=== PATIENT | male | born 1960 | race Caucasian/White ===

== ENCOUNTER 2022-07-14 00:39 | Day surgery (SDC) | payer BC, SELFPAY ==
[2022-07-02 11:00] VITALS: BMI 31.0
[2022-07-14 06:27] VITALS: BP 140/77; PULSE 69; RESP 18; TEMP 36.4; O2SAT 97
[2022-07-14] MEDS: LACTATED RINGERS 1,000 ML 150 ML IV CONT (06:33)
--- NOTE | 2022-07-14 07:26 | P.PNAN_ITS ---
Anes - Initial Pre Proc Eval Procedure: Operation Date: 07/14/22 07:30 Proposed Procedures p Esophagogastroduodenoscopy & Screening Colonoscopy - Daron Freeman MD Date/Time: 07/14/22 07:26 Surgeon: Daron Sewell MD Pre Op Diagnosis: family hx colon ca, dysphagia Patient Data Age: 62 Gender: M Height: 1.73 m Weight: 95.6 kg Last Vital Signs Temp 97.5 F L 07/14/22 06:27 Pulse 69 07/14/22 06:27 Resp 18 07/14/22 06:27 BP 140/77 07/14/22 06:27 Pulse Ox 97 07/14/22 06:27 O2 Del Method Room Air 07/14/22 06:27 Allergies Allergy/AdvReac Type Severity Reaction Status Date / Time Sulfa (Sulfonamide Allergy Unknown Unknown Verified 07/14/22 06:23 Antibiotics) Home Medications Medication Instructions Recorded Confirmed Type famotidine 20 mg tablet 20 mg PO BID #180 tabs 11/26/19 07/14/22 Rx hydroxyzine HCl 25 mg tablet See Rx Instructions PO QHS PRN 04/15/22 07/14/22 Rx insomnia #30 tabs bupropion HCl 150 mg 24 hr tablet, 150 mg PO QAM #30 tabs 04/26/22 07/14/22 Rx extended release (Wellbutrin XL) Patient hx anesthesia problems: none Family hx anesthesia problems: none Results Review: All pre-operative results and documents have been reviewed as part of the pre- operative evaluation. [facility] Past Medical History Medical History Anxiety GERD (gastroesophageal reflux disease) Family History Family History Other Carcinoma of colon Social History Social History Smoking status: Never smoker Second hand tobacco smoke exposure: No Alcohol intake: never Substance use: never Substance use type: does not use Lack of Transportation: No Lack of Food: Never True Current Housing: I Have Housing Concerned About Future Housing: No Difficulty Paying Gas/Electric Bills: No Difficulty Paying for Meds: No Currently Unemployed: No Education: High School Diploma/GED Difficulty w/ Childcare or Family Care: No Living arrangements: with family Spiritual care concerns: No Anes - Eval Final PreProcedure Day of Procedure 07/14/22 07:26 Patient weight: obese Heart: regular rate and rhythm Lungs: clear to auscultation Airway: Mallampati scale class II Neurological: alert and oriented Last oral intake: >/= 8 hours ASA classification: II Emergent: no Anesthetic plan: proceed Anesthesia type and monitoring: general GIVS and standard monitoring Results Review: All pre-operative results and documents have been reviewed as part of the pre- operative evaluation. Informed Consent: The patient's anesthetic plan and its attendant risks and benefits were discussed with the patient/family/POA. Questions were solicited and answers provided to the satisfaction of the patient/family/POA.
--- NOTE | 2022-07-14 07:31 | PM.HPGS ---
History of Present Illness History of Present Illness Consent: Risks, benefits, and alternatives have been discussed and questions answered. Patient agrees to proceed with procedure. Chief complaint: family hx colon ca, dysphagia Narrative: Tom Rose is a 62 year old male with dysphagia using famotidine, also history of family colon cancer in brother, last colonoscopy 5 years ago Review of Systems Constitutional: Constitutional: Denies headache(s) and Denies weakness Eyes: Eyes: Denies blurry vision ENT: Reports Normal hearing present, Denies headache(s) and Denies neck pain Cardiovascular: Cardiovascular: Denies chest pain and Denies dyspnea Respiratory: Respiratory: Denies dyspnea Gastrointestinal: Gastrointestinal: Reports no additional gastrointestinal complaints Genitourinary: Genitourinary: Denies dysuria Musculoskeletal: Musculoskeletal: Denies neck pain Integumentary/Breasts: Skin/Breast: Denies dry skin Neurologic: Reports Normal hearing present, Denies headache(s) and Denies weakness Psychiatric: Psychiatric: Denies anxiety Endocrine: Endocrine: Denies change in body appearance Hematologic/Lymphatic: Hematologic/Lymphatic: Denies easy bleeding Allergic/Immunologic: Allergic/Immunologic: Denies urticaria PMFSH Past Medical History Medical History Anxiety GERD (gastroesophageal reflux disease) Family History Family History Other Carcinoma of colon Social History Social History Smoking status: Never smoker Second hand tobacco smoke exposure: No Alcohol intake: never Substance use: never Substance use type: does not use Lack of Transportation: No Lack of Food: Never True Current Housing: I Have Housing Concerned About Future Housing: No Difficulty Paying Gas/Electric Bills: No Difficulty Paying for Meds: No Currently Unemployed: No Education: High School Diploma/GED Difficulty w/ Childcare or Family Care: No Living arrangements: with family Spiritual care concerns: No Meds Home Medications and Allergies Home Medications Medication Instructions Recorded Confirmed Type famotidine 20 mg tablet 20 mg PO BID #180 tabs 11/26/19 07/14/22 Rx hydroxyzine HCl 25 mg tablet See Rx Instructions PO QHS PRN 12/29/22 03/29/23 Rx insomnia #30 tabs bupropion HCl 150 mg 24 hr tablet, 150 mg PO QAM #30 tabs 04/26/22 07/14/22 Rx extended release (Wellbutrin XL) Allergies Allergy/AdvReac Type Severity Reaction Status Date / Time Sulfa (Sulfonamide Allergy Unknown Unknown Verified 07/14/22 06:23 Antibiotics) Vital Signs Vital Signs - 24 hr 07/14/22 06:27 Temperature 97.5 F L Pulse Rate 69 Respiratory Rate 18 Blood Pressure 140/77 Pulse Oximetry 97 Oxygen Delivery Room Air Exam Const: General: comfortable and no acute distress HENMT: Face/Nose/Sinus: Normal nares present Eyes: General: appearance normal, both eyes and all related structures Neck: Neck: no JVD Resp: Auscultation: clear to auscultation bilaterally Cardio: Rate: regular rate Rhythm: regular rhythm GI: Inspection: non-distended GI Palp: Yes Soft to palpation Skin: General skin exam: normal color Neuro: General: gait normal Speech: normal speech Extrem: General: normal to inspection Psych: Mental Status: mental status grossly normal Assessment and Plan Assessment and plan (1) Dysphagia: Code(s): R13.10 - Dysphagia, unspecified Status: Acute Assessment and Plan: egd to assess (2) Family history of colon cancer: Code(s): Z80.0 - Family history of malignant neoplasm of digestive organs Status: Acute Assessment and Plan: colonoscopy
--- NOTE | 2022-07-14 07:46 | WPDANESEPPF ---
Anes - Initial Pre Proc Eval Procedure: Operation Date: 07/14/22 07:30 Proposed Procedures p Esophagogastroduodenoscopy & Screening Colonoscopy - Daron Sewell MD Date/Time: 07/14/22 07:46 Surgeon: Daron Sewell MD Pre Op Diagnosis: family hx colon ca, dysphagia Patient Data Age: 62 Gender: M Height: 1.73 m Weight: 95.6 kg Last Vital Signs Temp 97.5 F L 07/14/22 06:27 Pulse 69 07/14/22 06:27 Resp 18 07/14/22 06:27 BP 140/77 07/14/22 06:27 Pulse Ox 97 07/14/22 06:27 O2 Del Method Room Air 07/14/22 06:27 Allergies Allergy/AdvReac Type Severity Reaction Status Date / Time Sulfa (Sulfonamide Allergy Unknown Unknown Verified 07/14/22 06:23 Antibiotics) Home Medications Medication Instructions Recorded Confirmed Type famotidine 20 mg tablet 20 mg PO BID #180 tabs 11/26/19 07/14/22 Rx hydroxyzine HCl 25 mg tablet See Rx Instructions PO QHS PRN 04/15/22 07/14/22 Rx insomnia #30 tabs bupropion HCl 150 mg 24 hr tablet, 150 mg PO QAM #30 tabs 04/26/22 07/14/22 Rx extended release (Wellbutrin XL) omeprazole 40 mg capsule,delayed 40 mg PO DAILY #30 caps 07/14/22 Rx release Patient hx anesthesia problems: none Family hx anesthesia problems: none Results Review: All pre-operative results and documents have been reviewed as part of the pre-operative evaluation. [facility] Past Medical History Medical History Anxiety GERD (gastroesophageal reflux disease) Family History Family History Other Carcinoma of colon Social History Social History Smoking status: Never smoker Second hand tobacco smoke exposure: No Alcohol intake: never Substance use: never Substance use type: does not use Lack of Transportation: No Lack of Food: Never True Current Housing: I Have Housing Concerned About Future Housing: No Difficulty Paying Gas/Electric Bills: No Difficulty Paying for Meds: No Currently Unemployed: No Education: High School Diploma/GED Difficulty w/ Childcare or Family Care: No Living arrangements: with family Spiritual care concerns: No Anes - Eval Final PreProcedure Day of Procedure 07/14/22 07:46 Patient weight: obese Heart: regular rate and rhythm Lungs: clear to auscultation Airway: Mallampati scale class II Neurological: alert and oriented Last oral intake: >/= 8 hours ASA classification: II Emergent: no Anesthetic plan: proceed Anesthesia type and monitoring: general GIVS and standard monitoring Results Review: All pre-operative results and documents have been reviewed as part of the pre-operative evaluation. Informed Consent: The patient's anesthetic plan and its attendant risks and benefits were discussed with the patient/family/POA. Questions were solicited and answers provided to the satisfaction of the patient/family/POA.
--- NOTE | 2022-07-14 07:46 | SUR.OPER ---
EGD end [id number] Colonoscopy start [id number]
[2022-07-14 07:55] VITALS: BP 104/65; PULSE 58; RESP 25; O2SAT 95
[2022-07-14 08:05] VITALS: BP 101/69; PULSE 59; RESP 17; O2SAT 97
[2022-07-14 08:15] VITALS: BP 131/72; PULSE 58; RESP 14; O2SAT 98
== END 2022-07-14 08:35 | disposition home or self-care (01) ==
PROVIDERS: PCP Family Medicine; Visit Provider Internal Medicine Gastroenterology
PROC: 0DJ08ZZ Inspection of Upper Intestinal Tract, Via Natural or Artificial Opening Endoscopic (ICD-10-PCS; CPT 43235; principal; 2022-07-14 07:30)
DX: K21.00 Gastro-esophageal reflux disease with esophagitis, without bleeding (principal); K44.9 Diaphragmatic hernia without obstruction or gangrene; K22.2 Esophageal obstruction; Z12.11 Encounter for screening for malignant neoplasm of colon; K57.30 Diverticulosis of large intestine without perforation or abscess without bleeding; D12.2 Benign neoplasm of ascending colon; Z80.0 Family history of malignant neoplasm of digestive organs; F41.9 Anxiety disorder, unspecified; E66.9 Obesity, unspecified; Z68.32 Body mass index [BMI] 32.0-32.9, adult
CPT/HCPCS: 43239; 43249; 45380; 88305; C1726; J2704; J7120